=== PATIENT | female | born 1960 | race Caucasian/White ===

== ENCOUNTER 2016-10-08 08:08 | Day surgery (SDC) | payer OTHER ==
[~2016-10-08] VITALS: Ht 167.6 cm; Wt 111.9 kg
[2016-10-08 08:50] VITALS: Ht 167.6 cm; Wt 111.9 kg
[2016-10-08] MEDS ORDERED: GABA-526 PO (08:57)
[2016-10-08] MEDS ORDERED: BUPR150T18 PO (08:57)
[2016-10-08] MEDS ORDERED: HYDR-3011 PO (08:57)
[2016-10-08] MEDS ORDERED: PRAV40TA76 PO (08:57)
[2016-10-08] MEDS ORDERED: CITA20TA6 PO (08:57)
[2016-10-08] MEDS ORDERED: DIPH25CA6 PO (08:57)
[2016-10-08] MEDS ORDERED: OMEP20CA16 PO (08:57)
[2016-10-08] MEDS ORDERED: FENTAnyl 50 MCG/ML VIAL ONE (09:21)
[2016-10-08] MEDS ORDERED: PROPOFOL 20 ML ONE (09:21)
[2016-10-08] MEDS ORDERED: MIDAZOLAM 1 MG/ML 2 ML INJ ONE ×2 (09:22)
[2016-10-08 09:29] VITALS: BP 118/73; PULSE 66; RESP 22
[2016-10-08 10:30] VITALS: BP 124/66; PULSE 74; RESP 18
--- NOTE | 2016-10-08 11:38 | GILP ---
DATE OF PROCEDURE: 10/08/2016 NAME OF PROCEDURES: 1. Esophagogastroduodenoscopy and biopsy. 2. Colonoscopy. SURGEON: Isabella Niño MD PREOPERATIVE DIAGNOSES: 1. Positive occult blood in stool. 2. Dysphagia. POSTOPERATIVE DIAGNOSES: 1. Gastroesophageal reflux disease. 2. Gastritis with erosions. 3. Gastric mucosal biopsies were taken for Helicobacter pylori test. 4. Colonoscopy all the way to the cecum. 5. Internal hemorrhoids. 6. No colon neoplasm was identified. INDICATION FOR THE PROCEDURE: Ms. Mariely Zavala is a 56-year-old female patient who had dysphagia. She also noticed to have positive occult blood in stool. The patient was scheduled for endoscopy a nd colonoscopy for further evaluation. The procedures and possible complications are well explained to the patient, she understood and cons ented to the procedure. DESCRIPTION OF PROCEDURE: Under the influence of anesthesia, the gastroscope was carefully introduc ed into the esophagus and under direct vision it was advanced to the stomach and through the pylorus into the duodenal bulb and descending duodenum. FINDINGS: ESOPHAGUS: The patient had gastroesophageal reflux disease. STOMACH: She had gastritis with erosions. Gastric mucosal biopsies were taken for H. pylori test. DUODENUM: Normal. The colonoscope was carefully introduced in the rectum and under direct vision it was advanced all t he way to the cecum. FINDINGS: The patient had internal hemorrhoids. No colon neoplasm was identified. She tolerated the procedures very well and there was no complication from the procedures. At the en d of the procedures, she was awake with stable vital signs and she was discharged home to the care o f her family. IMPRESSION: Please see postoperative diagnosis. PLAN: 1. Continue omeprazole. 2. Add Zantac 300 mg p.o. at bedtime. 3. Await H. pylori test report. 4. High fiber diet. 5. Next screening colonoscopy in 10 years. Dictated By: ISABELLA JACKSON/CHINEDU Conf#: [id number] DID#: [id number]
== END 2016-10-08 10:34 | disposition home or self-care (01) ==
LOC: GIL 08:08
PROVIDERS: ATTEND Internal Medicine Gastroenterology
DX: Z12.11 Encounter for screening for malignant neoplasm of colon (principal); K21.9 Gastro-esophageal reflux disease without esophagitis; K29.60 Other gastritis without bleeding; K64.8 Other hemorrhoids; E66.9 Obesity, unspecified; Z68.39 Body mass index [BMI] 39.0-39.9, adult
CPT/HCPCS: 43239; 45378; 87081; J2250; J3010; Z7610